=== PATIENT | male | born 1950 | race American Indian/Alaskan Native ===

== ENCOUNTER 2017-05-10 00:39 | Emergency (ER) | payer MEDICARE ==
[2017-05-10 01:40] LABS: Basophils % (Auto) 0.5 % (0.0-1.8); Hematocrit 41.3 % (35.5-45.6); Hemoglobin 13.5 gm/dl (11.8-15.2); Mean Corpuscular HGB Conc 33 % (32-34); Mean Corpuscular Hemoglobin 28 pg (28-32); Mean Corpuscular Volume 84 fl (84-94); Platelet Count 296 K/mm3 (140-440); Red Cell Distribution Width 14.3 % (13.2-15.2); White Blood Count 5.8 K/mm3 (4.5-11.0)
[2017-05-10] MEDS ORDERED: ATIVAN PO ONE (01:48)
[2017-05-10 02:01] LABS: Anion Gap 18 mmol/L; Blood Urea Nitrogen 12 mg/dL (9-20); Calcium 9.3 mg/dL (8.4-10.2); Carbon Dioxide 25 mmol/L (22-30); Chloride 100.8 mmol/L (98-107); Glucose 102 mg/dL (75-100); Potassium 3.5 mmol/L (3.6-5.0); Sodium 140 mmol/L (137-145)
--- NOTE | 2017-05-10 02:47 | Cat Scan Report ---
FINAL REPORT PROCEDURE: CT HEAD/BRAIN WO CON TECHNIQUE: Computerized tomography of the head was performed without contrast material. HISTORY: Fall COMPARISON: No prior studies are available for comparison. FINDINGS: Skull and scalp: Normal. Paranasal sinuses: Normal. Ventricles and subarachnoid spaces: Normal. Cerebrum: No evidence of hemorrhage, acute infarction or mass. There is moderate atrophy and periventricular deep white matter changes. Multiple old lacunar infarctions of both basal ganglia are noted.. Cerebellum and brainstem: No evidence of hemorrhage, acute infarction or mass. Vasculature: Normal. Comments: None. IMPRESSION: There is no evidence of an acute intracranial process. Moderate atrophy and periventricular deep white matter changes. Multiple old lacunar infarctions of both basal ganglia are identified.
[2017-05-10 03:09] LABS: Creatine Kinase 117 units/L (55-170); Creatine Kinase MB 2.2 ng/mL (0.0-4.0)
[2017-05-10] MEDS ORDERED: K-DUR PO ONE (03:55)
--- NOTE | 2017-05-10 04:45 | Emergency Department Report ---
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 Patient states he was in the bed at the long-term with the rails up watching TV. Next thing he knows he was on the floor. Patient does not recall how he got there. He states he does not ambulate. He is unsure of LOC. He complains of right frontal headache and denies neck or other pain. Pain rated 4/10 in intensity without aggravating or alleviating factors. - Related Data Home Medications Medication Instructions Recorded Confirmed Last Taken AtorvaSTATin [Lipitor] 80 mg PO QHS 05/10/17 05/10/17 Unknown Dantrolene [Dantrium] 25 mg PO TID 05/10/17 05/10/17 Unknown Docusate Sodium [Colace] 100 mg PO BID 05/10/17 05/10/17 Unknown Lisinopril [Zestril TAB] 10 mg PO QDAY 05/10/17 05/10/17 Unknown Omeprazole 20 mg PO DAILY 05/10/17 05/10/17 Unknown Sennosides 8.6 mg PO QHS 05/10/17 05/10/17 Unknown Allergies Allergy/AdvReac Type Severity Reaction Status Date / Time No Known Allergies Allergy Unverified 10/01/15 15:39 ED Review of Systems ROS: Stated complaint: FALL Other details as noted in HPI Comment: All other systems reviewed and negative Other: Constitutional: No fevers chills Eyes: No eye pain visual changes ENT: No ear pain or throat pain Neck: Denies pain Respiratory: Denies cough wheezing shortness of breath Cardiovascular: Denies chest pain, palpitations, syncope GI: Denies abdominal pain, nausea, vomiting, diarrhea : Denies dysuria Musculoskeletal: Denies back pain Skin: Denies rash, lesions, erythema Neurologic: + headache, left sided chronic weakness Psychiatric: Denies suicidal ideation, hallucinations ED Past Medical Hx - Past Medical History Previous Medical History?: Yes Hx Hypertension: Yes Hx CVA: Yes Additional medical history: Chronic Pain - Surgical History Additional Surgical History: Left foot surgery, - Social History Smoking Status: Current Every Day Smoker Substance Use Type: None - Medications Home Medications: Home Medications Medication Instructions Recorded Confirmed Last Taken Type AtorvaSTATin [Lipitor] 80 mg PO QHS 05/10/17 05/10/17 Unknown History Dantrolene [Dantrium] 25 mg PO TID 05/10/17 05/10/17 Unknown History Docusate Sodium [Colace] 100 mg PO BID 05/10/17 05/10/17 Unknown History Lisinopril [Zestril TAB] 10 mg PO QDAY 05/10/17 05/10/17 Unknown History Omeprazole 20 mg PO DAILY 05/10/17 05/10/17 Unknown History Sennosides 8.6 mg PO QHS 05/10/17 05/10/17 Unknown History ED Physical Exam - General Limitations: No Limitations - Other Other exam information: General: No limitations, patient is alert in no acute distress Head exam: Atraumatic, normocephalic Eyes exam: Normal appearance, pupils equal reactive to light, extraocular movements intact ENT: Moist mucous membrane, normal oropharynx Neck exam: Normal inspection, full range of motion, no meningismus nontender Respiratory exam: Clear to auscultation bilateral, no wheezes, rales, crackles Cardiovascular: Normal rate and rhythm, normal heart sounds Abdomen: Soft, nondistended, and nontender, with normal bowel sounds, no rebound, or guarding Extremity: Full range of motion normal inspection no deformity Back: Normal Inspection, full range of motion, no tenderness Neurologic: Alert, oriented x3, slurred speech which is chronic, left arm contracted with no movement at the wrist, hand, or elbow. 4/5 left lower extremity strength. 5/5 strength of the right upper and lower extremity Psychiatric: normal affect, normal mood Skin: Warm, dry, intact ED Course Vital Signs 05/10/17 05/10/17 05/10/17 00:54 01:01 01:08 Temperature 98 F Pulse Rate 73 Respiratory 18 Rate Blood Pressure 134/74 155/42 134/74 Blood Pressure 134/74 [Right] O2 Sat by Pulse 97 98 98 Oximetry 05/10/17 05/10/17 05/10/17 01:11 01:19 01:21 Temperature Pulse Rate Respiratory 18 Rate Blood Pressure 155/42 155/42 Blood Pressure [Right] O2 Sat by Pulse 99 98 98 Oximetry 05/10/17 05/10/17 05/10/17 01:30 01:41 01:51 Temperature Pulse Rate 65 85 69 Respiratory 15 13 15 Rate Blood Pressure 151/80 151/80 151/81 Blood Pressure [Right] O2 Sat by Pulse 93 97 98 Oximetry 05/10/17 05/10/17 05/10/17 02:01 02:31 02:41 Temperature Pulse Rate 65 63 Respiratory 12 16 Rate Blood Pressure 130/87 130/87 130/87 Blood Pressure [Right] O2 Sat by Pulse 97 99 99 Oximetry 05/10/17 05/10/17 05/10/17 02:51 03:00 03:11 Temperature Pulse Rate 66 64 58 L Respiratory 10 L 12 12 Rate Blood Pressure 153/83 138/80 138/80 Blood Pressure [Right] O2 Sat by Pulse 98 98 99 Oximetry 05/10/17 05/10/17 05/10/17 03:21 03:30 03:41 Temperature Pulse Rate 93 H 63 59 L Respiratory 13 11 L 14 Rate Blood Pressure 130/76 122/62 122/62 Blood Pressure [Right] O2 Sat by Pulse 100 97 99 Oximetry 05/10/17 03:51 Temperature Pulse Rate 58 L Respiratory 13 Rate Blood Pressure 137/72 Blood Pressure [Right] O2 Sat by Pulse 99 Oximetry - Reevaluation(s) Reevaluation #1: 05/10/17 04:45 Patient was conscious and moving around in the bed and would not stay still. Ativan by mouth was given so that EKG and CT couldn't be obtained ED Medical Decision Making - Lab Data Result diagrams: 05/10/17 01:21 05/10/17 01:21 Lab Results 05/10/17 05/10/17 05/10/17 Range/Units 01:21 01:21 01:21 WBC 5.8 (4.5-11.0) K/mm3 RBC 4.90 (3.65-5.03) M/mm3 Hgb 13.5 (11.8-15.2) gm/dl Hct 41.3 (35.5-45.6) % MCV 84 (84-94) fl MCH 28 (28-32) pg MCHC 33 (32-34) % RDW 14.3 (13.2-15.2) % Plt Count 296 (140-440) K/mm3 Lymph % (Auto) 15.0 (13.4-35.0) % [place] % (Auto) 8.0 H (0.0-7.3) % Eos % (Auto) 2.0 (0.0-4.3) % Baso % (Auto) 0.5 (0.0-1.8) % Lymph # 0.9 L (1.2-5.4) K/mm3 [place] # 0.5 (0.0-0.8) K/mm3 Eos # 0.1 (0.0-0.4) K/mm3 Baso # 0.0 (0.0-0.1) K/mm3 Seg Neutrophils % 74.5 H (40.0-70.0) % Seg Neutrophils # 4.3 (1.8-7.7) K/mm3 Sodium 140 (137-145) mmol/L Potassium 3.5 L (3.6-5.0) mmol/L Chloride 100.8 (98-107) mmol/L Carbon Dioxide 25 (22-30) mmol/L Anion Gap 18 mmol/L BUN 12 (9-20) mg/dL Creatinine 0.6 L (0.8-1.5) mg/dL Estimated GFR > 60 ml/min BUN/Creatinine Ratio 20.00 % Glucose 102 H (75-100) mg/dL Calcium 9.3 (8.4-10.2) mg/dL Total Creatine Kinase 117 (55-170) units/L CK-MB (CK-2) 2.2 (0.0-4.0) ng/mL CK-MB (CK-2) Rel Index 1.8 (0-4) Troponin T < 0.010 (0.00-0.029) ng/mL - Medical Decision Making CT head unremarkable. No external signs of head injury. No other pain or injury reported. Suspect that patient fell out of the bed. He will be discharged back to long-term - Differential Diagnosis fall, syncope, head injury, ICH Critical Care Time: No Critical care attestation.: If time is entered above; I have spent that time in minutes in the direct care of this critically ill patient, excluding procedure time. ED Disposition Clinical Impression: Fall from bed, History of CVA with residual deficit, Headache Disposition: DC-01 TO HOME OR SELFCARE Is pt being admited?: No Condition: Stable Instructions: Fall Prevention for Older Adults (ED), Self Care Measures After a Stroke (ED) Additional Instructions: Take Motrin or Tylenol as needed for pain. Follow-up with your primary care doctor. Referrals: PRIMARY CARE, [Primary Care Provider] - 2-3 Days Time of Disposition: 04:47
[2017-05-10 05:26] VITALS: BP 144/78
== END 2017-05-10 06:30 | disposition home or self-care (01) ==
LOC: ED 00:39
DX: R51 Headache (principal); I10 Essential (primary) hypertension; G89.29 Other chronic pain; F17.200 Nicotine dependence, unspecified, uncomplicated; Z86.73 Personal history of transient ischemic attack (TIA), and cerebral infarction without residual deficits; W06.XXXA Fall from bed, initial encounter; Y93.89 Activity, other specified; Y99.9 Unspecified external cause status; Y92.89 Other specified places as the place of occurrence of the external cause
CPT/HCPCS: 36415; 70450; 80048; 82550; 82553; 84484; 85025; 93005; 93010